=== PATIENT | male | born 1970 | race Caucasian/White ===

== ENCOUNTER 2020-12-09 20:09 | Emergency (ER) | payer BC ==
[2020-12-09] MEDS ORDERED: Sodium Chloride 0.9% 10 ML Syringe FLUSH PRN (20:23)
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
--- NOTE | 2020-12-09 21:01 | CRLCT ---
For Patients: As a result of the Century Cures Act, medical imaging exams and procedure reports are released immediately into your electronic medical record. You may view this report before your referring provider. If you have questions, please contact your health care provider. INDICATION: Trauma TECHNIQUE: CT head without contrast. COMPARISON: None. FINDINGS: CSF spaces: Within normal limits for age. Brain parenchyma and extra-axial spaces: The farrell-white differentiation is normal. No sign of mass, hemorrhage, or midline shift. No extra-axial fluid collection. Skull base and calvarium: The visualized paranasal sinuses and mastoid air cells demonstrate no acute or significant findings. The visualized orbits are grossly unremarkable. No skull fractures. IMPRESSION: Unremarkable noncontrast head CT. Please note that all CT scans at this facility use dose modulation, iterative reconstruction, and/or weight-based dosing when appropriate to reduce radiation dose to as low as reasonably achievable. Dictated by Toña Rolle MD @ 12/09/2020 8:59:[address] Toña Rolle @ Dec 09 2020 8:59PM
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
--- NOTE | 2020-12-12 10:06 | CR ---
Shoulder Comp Rt CLINICAL HISTORY: Trauma FINDINGS: There is a dislocation with avulsion fracture at the AC joint. The clavicle is displaced superiorly. Impression: Type III injury at the right AC joint with a small fragment of avulsed bone just above the acromium
== END 2020-12-09 22:20 | disposition home or self-care (01) ==
LOC: JP.ED 20:09
DX: S43.101A Unspecified dislocation of right acromioclavicular joint, initial encounter (principal); S01.01XA Laceration without foreign body of scalp, initial encounter; S16.1XXA Strain of muscle, fascia and tendon at neck level, initial encounter; S70.12XA Contusion of left thigh, initial encounter; V86.59XA Driver of other special all-terrain or other off-road motor vehicle injured in nontraffic accident, initial encounter
CPT/HCPCS: 12001; 36415; 70450; 72125; 73030-26-RT; 73030-RT; 80053; 80307; 81003; 85025; 99283; 99284-25